=== PATIENT | female | born 1950 | race Caucasian/White ===

== ENCOUNTER 2016-07-04 06:33 | Day surgery (SDC) | payer MEDICARE, OTHER ==
[2016-07-02 12:50] LABS: ABSOLUTE BASOPHILS # (AUTO) 0.1 10^3/uL (0.0-0.2); ABSOLUTE EOSINOPHILS # (AUTO) 0.3 10^3/uL (0.0-0.6); ABSOLUTE LYMPHOCYTES (AUTO) 1.9 10^3/uL (0.5-4.7); ABSOLUTE MONOCYTES (AUTO) 0.4 10^3/uL (0.1-1.4); ABSOLUTE NEUT (AUTO) 3.5 10^3/uL (1.7-8.2); BASOPHILS % (AUTO) 0.9 % (0-2); EOSINOPHILS % (AUTO) 4.2 % (0-6); HEMATOCRIT 42.4 % (36.0-47.0); HEMOGLOBIN 14.1 g/dL (12.0-15.5); HGB HCT DIFFERENCE -0.1; LYMPHOCYTES % (AUTO) 30.9 % (13-45); MEAN CORPUSCULAR HEMOGLOBIN 28.8 pg (27.0-33.4); MEAN CORPUSCULAR HGB CONC 33.3 g/dL (32.0-36.0); MEAN CORPUSCULAR VOLUME 87 fl (80-97); MONOCYTES % (AUTO) 6.4 % (3-13); RED CELL DISTRIBUTION WIDTH 13.2 % (11.5-14.0); SEGMENTED NEUTROPHILS % (AUTO) 57.6 % (42-78); WHITE BLOOD COUNT 6.1 10^3/uL (4.0-10.5)
[2016-07-02 12:58] LABS: APPEARANCE,URINE CLEAR; BILIRUBIN,URINE NEGATIVE (NEGATIVE); GLUCOSE, URINE NEGATIVE (NEGATIVE); KETONES,URINE NEGATIVE (NEGATIVE); LEUKOCYTE ESTERASE,URINE NEGATIVE (NEGATIVE); NITRITE,URINE NEGATIVE (NEGATIVE); PROTEIN,URINE NEGATIVE (NEGATIVE); URINE SPECIFIC GRAVITY 1.009; UROBILINOGEN,URINE NEGATIVE mg/dL (<2.0)
[~2016-07-04 06:33] MED LIST: CEFAZOLIN 1 GM/D5W RTU 1 GM/50 ML RTUPB IV PRN; CEFAZOLIN SODIUM 1 GM in DEXTROSE 5%-WATER 50 ML IV PRN; RINGERS SOLUTION,LACTATED 1,000 ML IV PRN
[2016-07-04] MEDS ORDERED: BUPIVACAINE HCL 0.5 % INJ/PF 30 ML SDV ONE (07:15)
[2016-07-04] MEDS ORDERED: LIDOCAINE 2% INJ (20 MG/ML) 20 ML MDV ONE (07:16)
[2016-07-04] MEDS ORDERED: PROPOFOL INJ 200 MG/20 ML VIAL IV ONE (07:24)
[2016-07-04] MEDS ORDERED: MIDAZOLAM 2 MG/2 ML INJ ONE (07:24)
[2016-07-04] MEDS ORDERED: FENTANYL CITRATE INJ/PF 100 MCG/2 ML AMPUL ONE (07:24)
[2016-07-04] MEDS ORDERED: CEFAZOLIN 1 GM/D5W RTU 1 GM/50 ML RTUPB IV ONE (09:46)
--- NOTE | 2016-07-04 10:33 | [facility] OPERATIVE REPORT E ---
[facility] Operative Report NAME: DENISE SIMTH AGE: 66Y DATE OF SURGERY: 07/04/2016 ROOM: PREOPERATIVE DIAGNOSIS: Hallux limitus, right foot. POSTOPERATIVE DIAGNOSIS: Hallux limitus, right foot. PROCEDURES PERFORMED: 1. Arthroplasty of the first metatarsophalangeal joint. 2. Isaiah implant (Cartiva) style of implant, introducing to first metatarsal head right foot. SURGEON: JUDITH POWERS D.P.M. INTRAOPERATIVE FINDINGS: Indicated total destruction of the metatarsophalangeal joint of the articular facets of the head of the first metatarsal in the base of the proximal phalanx, exuberant formation of osteophytes around the metatarsophalangeal joint. Intraoperative findings were confirmed clinically and radiographically. PROCEDURE: With the patient laying in a dorsal recumbent, right foot and leg were prepped and draped in the usual standard sterile orthopedic manner after the local anesthesia was administered, which was a total ankle block. After the anesthetic effect was accomplished the right leg was elevated for approximately 2 minutes of time and the right ankle pneumatic tourniquet was inflated up to 250 mmHg after the blood was exsanguinated from the right foot. At this point, the right leg was brought to the level of the table. Attention was directed right over the first metatarsophalangeal joint. A curvilinear incision was placed right over the joint. The initial incision was deepened. The superficial and deep subcutaneous tissues were dissected via blunt and sharp dissection. This dissection was carried until the capsular structures of the first metatarsophalangeal joint were brought into the surgical field. All bleeders were ligated. All vital structures were identified and protected from surgical trauma. At this point, the T capsulotomy was performed at the roof of the T capsulotomy was medial and adjacent to extensor hallucis longus tendon. The foot of the capsulotomy was placed right over the joint and ran in medial inferior direction. Capsular and periosteal structures were dissected off bone and the joint was brought into the surgical field. At this point, the arthroplasty was performed to eliminate all abnormal osteophytic formation around the head of the first metatarsal at the base of the proximal phalanx. The head was remodeled to a more normal anatomical configuration. At this point, the functional portion of the articular facet of the head of the first metatarsal was established and a K-wire was driven through it parallel to the long axis of the first metatarsal. Next, the reamer was used to form the bed of the implant. Next, the area was irrigated from all debris created from the drilling through the head of the first metatarsal. At this point, the preparatory work was completed and a 10 mm polyvinyl alcohol Cartiva plug was introduced into the bed of the isaiah implant. Next, the metatarsophalangeal joint was placed through a range of motion and there was about greater than 85 degrees of dorsiflexion. There was very natural full range of motion of the first metatarsophalangeal joint. Due to the satisfactory introduction of the isaiah implant, the right ankle pneumatic tourniquet was deflated. Circulation returned to normal immediately as the normal digital color and temperature became apparent. At this point, the denuded bone around dorsal, medial, and lateral aspect of the distal shaft of the first metatarsal was coated with Kellee AlloWrap 2 x 4 cm. This would prevent adhesion formation postoperatively, which can interfere with the range of motion of the first metatarsophalangeal joint. At this point, the capsular structures were closed with 2-0 Vicryl. The subcutaneous tissues from deep to superficial were closed with 3-0 Vicryl. The skin edges were repositioned and anchored down with 4-0 nylon using continuous interlocked stitch. Betadine compression dressing was applied around the surgical foot followed with an Salvador bandage and a surgical shoe. This patient tolerated the procedure well and left the operating room with stable vital signs and in good condition. The patient was taken to the recovery room alert, conscious, and oriented. There are no permanent disabilities anticipated at this time. DICTATING PHYSICIAN: JUDITH POWERS D.P.M. [id number] PHY#: [id number] ID: [id number] JOB#: [id number] ACCT: [id number] cc:JUDITH POWERS D.P.M. > MTDD
== END 2016-07-04 10:42 | disposition home or self-care (01) ==
LOC: SC 06:33
PROVIDERS: ATTEND Podiatrist Foot & Ankle Surgery
PROC: 0QH Lower Bones, Insertion (ICD-10-PCS; 2016-07-04)
PROC: 0SNM0ZZ Release Right Metatarsal-Phalangeal Joint, Open Approach (ICD-10-PCS; 2016-07-04)
PROC: 0SQM0ZZ Repair Right Metatarsal-Phalangeal Joint, Open Approach (ICD-10-PCS; principal; 2016-07-04 07:30)
DX: M20.21 Hallux rigidus, right foot (principal); I48.91 Unspecified atrial fibrillation; Z01.818 Encounter for other preprocedural examination; Z79.82 Long term (current) use of aspirin; Z88.2 Allergy status to sulfonamides; Z88.1 Allergy status to other antibiotic agents
CPT/HCPCS: 36415; 85025; 81001; 73620; 28899; 28270; J2250; J3490; J0690; J3010; J2704; 01480

== ENCOUNTER → 2017-07-28 | Outpatient (CLI) | payer MEDICARE, OTHER ==
[2017-07-28 09:52] LABS: ABSOLUTE EOSINOPHILS # (AUTO) 0.2 10^3/uL (0.0-0.6); ABSOLUTE LYMPHOCYTES (AUTO) 2.1 10^3/uL (0.5-4.7); ABSOLUTE MONOCYTES (AUTO) 0.5 10^3/uL (0.1-1.4); ABSOLUTE NEUT (AUTO) 5.1 10^3/uL (1.7-8.2); BASOPHILS % (AUTO) 0.4 % (0-2); HEMATOCRIT 43.2 % (36.0-47.0); HEMOGLOBIN 14.6 g/dL (12.0-15.5); LYMPHOCYTES % (AUTO) 26.6 % (13-45); MEAN CORPUSCULAR HEMOGLOBIN 29.5 pg (27.0-33.4); MEAN CORPUSCULAR HGB CONC 33.9 g/dL (32.0-36.0); MEAN CORPUSCULAR VOLUME 87 fl (80-97); MONOCYTES % (AUTO) 5.7 % (3-13); PLATELET COUNT 233 10^3/uL (150-450); RED BLOOD COUNT 4.95 10^6/uL (3.72-5.28); RED CELL DISTRIBUTION WIDTH 13.4 % (11.5-14.0); SEGMENTED NEUTROPHILS % (AUTO) 64.3 % (42-78); TOTAL CELLS COUNTED % (AUTO) 100 %; WHITE BLOOD COUNT 7.9 10^3/uL (4.0-10.5)
[2017-07-28 10:22] LABS: ALANINE AMINOTRANSFERASE 32 U/L (9-52); ALBUMIN 4.4 g/dL (3.5-5.0); ALKALINE PHOSPHATASE 93 U/L (38-126); ANION GAP 11 (5-19); ASPARTATE AMINO TRANSFERASE 23 U/L (14-36); BILIRUBIN,TOTAL 0.7 mg/dL (0.2-1.3); BLOOD UREA NITROGEN 15 mg/dL (7-20); CALCIUM 9.8 mg/dL (8.4-10.2); CARBON DIOXIDE 30 mmol/L (22-30); CHLORIDE 105 mmol/L (98-107); CHOLESTEROL 216.28 mg/dL (0-200); GLUCOSE 91 mg/dL (75-110); POTASSIUM 3.9 mmol/L (3.6-5.0); SODIUM 145.6 mmol/L (137-145); TOTAL PROTEIN 7.3 g/dL (6.3-8.2); TRIGLYCERIDES 111 mg/dL (<150)
[2017-07-28 10:32] LABS: DIRECT LDL 153 mg/dL (<100)
[2017-07-28 10:36] LABS: FREE T4 (FREE THYROXINE) 1.12 ng/dL (0.78-2.19)
[2017-07-28 10:49] LABS: THYROID STIMULATING HORMONE 2.94 uIU/mL (0.47-4.68)
== END ==
LOC: LAB 09:37
PROVIDERS: ATTEND Internal Medicine
DX: E78.00 Pure hypercholesterolemia, unspecified (principal); I48.0 Paroxysmal atrial fibrillation; E03.9 Hypothyroidism, unspecified; E55.9 Vitamin D deficiency, unspecified; I10 Essential (primary) hypertension; Z79.899 Other long term (current) drug therapy
CPT/HCPCS: 36415; 80053; 80061; 82306; 84439; 84443; 85025

== ENCOUNTER 2017-12-22 07:07 | Day surgery (SDC) | payer MEDICARE, OTHER ==
[~2017-12-22 07:07] MED LIST changes: +BUPIVACAINE HCL 0.75% INJ/PF (7.5 MG/1 ML) 10 ML SDV OD PRN; -CEFAZOLIN 1 GM/D5W RTU 1 GM/50 ML RTUPB IV PRN; -CEFAZOLIN SODIUM 1 GM in DEXTROSE 5%-WATER 50 ML IV PRN; +KETOROLAC TROMETHAMINE 0.45% 4 DROP/0.4 ML DROPERETTE OD PRN; +LIDOCAINE 4% INJ/PF (40 MG/ML) 5 ML AMPUL OD PRN; -RINGERS SOLUTION,LACTATED 1,000 ML IV PRN; +TOBRAMYCIN SULFATE/DEXAMETH OPH SUSP 2.5 ML OD PRN; +TOBRAMYCIN SULFATE/DEXAMETH OPH SUSP 2.5 ML ONE
[2017-12-22] MEDS ORDERED: LIDOCAINE 1% INJ-PF (10 MG/ML) 30 ML SDV ONE (07:23)
[2017-12-22] MEDS ORDERED: EPINEPHRINE INJ/PF 1 MG/1 ML AMPULE ONE (07:23)
[2017-12-22] MEDS ORDERED: CHONDR SU A NA/HYALUR INTRAOC KIT (SURGICARE) ONE (07:24)
[2017-12-22] MEDS: TROPICAMIDE 1% OPH SOLN 3 ML OD PRN ×3 (07:49→08:09)
[2017-12-22] MEDS: CYCLOPENTOLATE 0.2%/PHENYLEPHRINE 1% OPH SOLN 2 ML OD PRN ×3 (07:49→08:09)
[2017-12-22] MEDS: TETRACAINE HCL 0.5% OPH SOLN 0.6 ML DROPERETTE OD PRN ×2 (07:50→08:09)
[2017-12-22] MEDS ORDERED: MIDAZOLAM 2 MG/2 ML INJ ONE ×2 (08:07)
[2017-12-22] MEDS: BESIFLOXACIN HCL 0.6% OPH SUSP 5 ML BOTTLE OD PRN ×3 (08:09→08:55)
--- NOTE | 2017-12-22 09:21 | [facility] OPERATIVE REPORT E ---
[facility] Operative Report NAME: DENISE SMITH AGE: 67Y DATE OF SURGERY: 12/22/2017 ROOM: [facility] Operative Report PREOPERATIVE DIAGNOSIS: CATARACT, RIGHT EYE. POSTOPERATIVE DIAGNOSIS: CATARACT, RIGHT EYE. PROCEDURE PERFORMED: PHACOEMULSIFICATION WITH POSTERIOR CHAMBER INTRAOCULAR LENS, RIGHT EYE. SURGEON: VINCE CSAH MD ANESTHESIA: TOPICAL WITH MAC. INDICATIONS FOR SURGERY: Difficulty driving at night. Best corrected visual acuity 20/60 PROCEDURE: The patient was brought to the Operating Room and placed on the operative table. Following tetracaine drops, topical anesthesia was administered. This consisted of instrument wipe pledgets soaked in a solution of 4% Xylocaine mixed with 0.75% Marcaine in a 1:2 ratio. A 2 x 1 cm pledget was placed in the superior fornix. A 1 x 1 cm pledget was placed in the inferior fornix. The eye was patched shut for 5 minutes. The patch was removed. The eye was sterilely prepped and draped in the usual manner. Lid speculum was placed in the eye. The pledgets were removed. 4-0 black silk sutures were placed around the superior and the inferior rectus muscles to be used as traction. A conjunctival peritomy was made at the 10 o'clock position. Hemostasis was obtained with bipolar cautery. A posterior limbal groove was created using a crescent knife and dissected anteriorly towards the cornea. A sharp point blade was used to create a paracentesis site at the 2 o'clock position. A 2.4 mm keratome was used to enter the anterior chamber through the groove. Viscoelastic was injected into the anterior chamber. An anterior capsulotomy was performed using Utrata forceps in a capsulorrhexis fashion. Hydrodissection and hydrodelineation were performed. Phacoemulsification was performed in dbqhvo-ghn-jzdhbxk technique. A total of 39 seconds phaco time was used. Following this, the I/A unit was used to remove residual cortex. Viscoelastic was injected into the capsular bag. Intraocular lens model SN60WF, 18.0 diopters, serial number [id number] was placed in the capsular bag. The I/A unit was used to remove residual viscoelastic. The wound was seen to be watertight under high and low pressure, and no sutures were placed. The intraocular lens was well centered. The pressure was adjusted in the eye to normal pressure. The 4-0 black silk sutures and lid speculum were removed. The eye was shielded after Besivance drops were placed. The patient tolerated the procedure well and was sent to the Recovery Room in good condition. DICTATING PHYSICIAN: VINCE CASH M.D. DICTATING PHYSICIAN: VINCE CASH M.D. [id number] PHY#: [id number] ID: [id number] JOB#: [id number] ACCT: [id number] cc:VINCE CASH M.D. >
--- NOTE | 2017-12-22 09:25 | [facility] DISCHARGE SUMMARY E ---
[facility] Discharge Summary NAME: DENISE SMITH AGE: 67Y ADMITTED: 12/22/2017 DISCHARGED: FINAL DIAGNOSIS: Cataract, right eye. HOSPITAL COURSE: The patient is a 57-year-old lady who underwent uneventful cataract extraction with intraocular lens implant, right eye on 12/22/2017. She will be discharged to home. She is instructed to resume preoperative medications, take Tylenol as needed for discomfort, to keep her eye shielded, to use Besivance, Durezol and Ilevro at 3 p.m. and 8 p.m., and to followup in my office in 1 day. DICTATING PHYSICIAN: VINCE CASH M.D. [id number] Y#: [id number] ID: [id number] JOB#: [id number] ACCT: [id number] cc:VINCE CASH M.D. >
== END 2017-12-22 09:36 | disposition home or self-care (01) ==
LOC: SC 07:07
PROVIDERS: ATTEND Ophthalmology
PROC: 08RJ3JZ Replacement of Right Lens with Synthetic Substitute, Percutaneous Approach (ICD-10-PCS; principal; 2017-12-22 08:30)
DX: H25.811 Combined forms of age-related cataract, right eye (principal); H25.812 Combined forms of age-related cataract, left eye; H16.223 Keratoconjunctivitis sicca, not specified as Sjogren's, bilateral; H17.89 Other corneal scars and opacities
CPT/HCPCS: 66984; V2632; J2250; J3490 ×5; A9270; J0171; 142

== ENCOUNTER 2018-01-12 07:59 | Day surgery (SDC) | payer MEDICARE, OTHER ==
[2018-01-12] MEDS: BESIFLOXACIN HCL 0.6% OPH SUSP 5 ML BOTTLE OS PRN ×4 (07:51→08:44)
[~2018-01-12 07:59] MED LIST changes: -BUPIVACAINE HCL 0.75% INJ/PF (7.5 MG/1 ML) 10 ML SDV OD PRN; +BUPIVACAINE HCL 0.75% INJ/PF (7.5 MG/1 ML) 10 ML SDV OS PRN; +CHONDR SU A NA/HYALUR INTRAOC KIT (SURGICARE) ONE; +EPINEPHRINE INJ/PF 1 MG/1 ML AMPULE ONE; -KETOROLAC TROMETHAMINE 0.45% 4 DROP/0.4 ML DROPERETTE OD PRN; +KETOROLAC TROMETHAMINE 0.45% 4 DROP/0.4 ML DROPERETTE OS PRN; +LIDOCAINE 1% INJ-PF (10 MG/ML) 30 ML SDV ONE; -LIDOCAINE 4% INJ/PF (40 MG/ML) 5 ML AMPUL OD PRN; +LIDOCAINE 4% INJ/PF (40 MG/ML) 5 ML AMPUL OS PRN; -TOBRAMYCIN SULFATE/DEXAMETH OPH SUSP 2.5 ML OD PRN; -TOBRAMYCIN SULFATE/DEXAMETH OPH SUSP 2.5 ML ONE
[2018-01-12] MEDS: CYCLOPENTOLATE 0.2%/PHENYLEPHRINE 1% OPH SOLN 2 ML OS PRN ×3 (08:34→08:55)
[2018-01-12] MEDS: TROPICAMIDE 1% OPH SOLN 3 ML OS PRN ×3 (08:34→08:55)
[2018-01-12] MEDS: TETRACAINE HCL 0.5% OPH SOLN 0.6 ML DROPERETTE OS PRN ×2 (08:35→09:09)
[2018-01-12] MEDS ORDERED: MIDAZOLAM 2 MG/2 ML INJ ONE (08:59)
[2018-01-12] MEDS ORDERED: FENTANYL CITRATE INJ/PF 100 MCG/2 ML AMPUL ONE (08:59)
--- NOTE | 2018-01-12 10:07 | [facility] OPERATIVE REPORT E ---
[facility] Operative Report NAME: DENISE SMITH AGE: 67Y DATE OF SURGERY: 01/12/2018 ROOM: [facility] Operative Report PREOPERATIVE DIAGNOSIS: CATARACT, LEFT EYE. POSTOPERATIVE DIAGNOSIS: CATARACT, LEFT EYE. PROCEDURE PERFORMED: PHACOEMULSIFICATION WITH POSTERIOR CHAMBER INTRAOCULAR LENS, LEFT EYE. SURGEON: VINCE CASH MD ANESTHESIA: TOPICAL WITH MAC. INDICATIONS FOR SURGERY: Difficulty driving with glare at night. Best corrected visual acuity 20/70. PROCEDURE: The patient was brought to the Operating Room and placed on the operative table. Following tetracaine drops, topical anesthesia was administered. This consisted of instrument wipe pledgets soaked in a solution of 4% Xylocaine mixed with 0.75% Marcaine in a 1:2 ratio. A 2 x 1 cm pledget was placed in the superior fornix. A 1 x 1 cm pledget was placed in the inferior fornix. The eye was patched shut for 5 minutes. The patch was removed. The eye was sterilely prepped and draped in the usual manner. Lid speculum was placed in the eye. The pledgets were removed. 4-0 black silk sutures were placed around the superior and the inferior rectus muscles to be used as traction. A conjunctival peritomy was made at the 10 o'clock position. Hemostasis was obtained with bipolar cautery. A posterior limbal groove was created using a crescent knife and dissected anteriorly towards the cornea. A sharp point blade was used to create a paracentesis site at the 2 o'clock position. A 2.4 mm keratome was used to enter the anterior chamber through the groove. Viscoelastic was injected into the anterior chamber. An anterior capsulotomy was performed using Utrata forceps in a capsulorrhexis fashion. Hydrodissection and hydrodelineation were performed. Phacoemulsification was performed in qastdl-vea-voueqre technique. A total of 6.05 CBE phaco time was used. Following this, the I/A unit was used to remove residual cortex. Viscoelastic was injected into the capsular bag. Intraocular lens model SN60WF, 20.5 diopters, serial number [id number] was placed in the capsular bag. The I/A unit was used to remove residual viscoelastic. The wound was seen to be watertight under high and low pressure, and no sutures were placed. The intraocular lens was well centered. The pressure was adjusted in the eye to normal pressure. The 4-0 black silk sutures and lid speculum were removed. The eye was shielded after Besivance drops were placed. The patient tolerated the procedure well and was sent to the Recovery Room in good condition. A single horizontal 10-0 Nylon suture was placed through the incision. The *------* was reapproximated over the incision. DICTATING PHYSICIAN: VINCE CASH M.D. DICTATING PHYSICIAN: VINCE CASH M.D. [id number] PHY#: [id number] ID: [id number] JOB#: [id number] ACCT: [id number] cc:VINCE CASH M.D. >
--- NOTE | 2018-01-12 10:10 | [facility] DISCHARGE SUMMARY E ---
[facility] Discharge Summary NAME: DENISE SMITH AGE: 67Y ADMITTED: 01/12/2018 DISCHARGED: 01/12/2018 FINAL DIAGNOSIS: Cataract, left eye. HOSPITAL COURSE: The patient is a 67-year-old lady who underwent uneventful cataract extraction with intraocular lens implant, left eye on 01/12/18. She will be discharged to home. She is instructed to resume preoperative medications, take Tylenol as needed for discomfort, to keep her eye shielded, to use Besivance, Durezol and Ilevro at 3 p.m. and 8 p.m., and to followup in my office in 1 day. DICTATING PHYSICIAN: VINCE CASH M.D. [id number] PHY#: [id number] ID: [id number] JOB#: [id number] ACCT: [id number] cc:VINCE CASH M.D. >
== END 2018-01-12 10:37 | disposition home or self-care (01) ==
LOC: SC 07:59
PROVIDERS: ATTEND Ophthalmology
DX: H25.812 Combined forms of age-related cataract, left eye (principal); Z96.1 Presence of intraocular lens; I10 Essential (primary) hypertension; I49.9 Cardiac arrhythmia, unspecified; Z79.01 Long term (current) use of anticoagulants; Z79.899 Other long term (current) drug therapy; Z88.2 Allergy status to sulfonamides; Z88.5 Allergy status to narcotic agent; Z88.1 Allergy status to other antibiotic agents
CPT/HCPCS: 66984; V2632; J2250; J3490 ×4; A9270; J0171; J3010; 142

== ENCOUNTER → 2020-04-10 | Outpatient (CLI) | payer MEDICARE, OTHER ==
[2020-04-10 10:05] LABS: ABSOLUTE EOSINOPHILS # (AUTO) 0.2 10^3/uL (0.0-0.6); ABSOLUTE LYMPHOCYTES (AUTO) 2.2 10^3/uL (0.5-4.7); ABSOLUTE MONOCYTES (AUTO) 0.5 10^3/uL (0.1-1.4); ABSOLUTE NEUT (AUTO) 3.7 10^3/uL (1.7-8.2); BASOPHILS % (AUTO) 0.5 % (0-2); EOSINOPHILS % (AUTO) 3.4 % (0-6); HEMATOCRIT 41.6 % (36.0-47.0); HEMOGLOBIN 14.3 g/dL (12.0-15.5); LYMPHOCYTES % (AUTO) 33.1 % (13-45); MEAN CORPUSCULAR HEMOGLOBIN 29.6 pg (27.0-33.4); MEAN CORPUSCULAR HGB CONC 34.3 g/dL (32.0-36.0); MEAN CORPUSCULAR VOLUME 86 fl (80-97); MONOCYTES % (AUTO) 6.9 % (3-13); PLATELET COUNT 225 10^3/uL (150-450); RED BLOOD COUNT 4.84 10^6/uL (3.72-5.28); RED CELL DISTRIBUTION WIDTH 13.6 % (11.5-14.0); SEGMENTED NEUTROPHILS % (AUTO) 56.1 % (42-78); TOTAL CELLS COUNTED % (AUTO) 100 %; WHITE BLOOD COUNT 6.6 10^3/uL (4.0-10.5)
[2020-04-10 10:28] LABS: ALBUMIN 4.1 g/dL (3.5-5.0); ALKALINE PHOSPHATASE 104 U/L (38-126); ANION GAP 10 (5-19); ASPARTATE AMINO TRANSFERASE 21 U/L (14-36); BILIRUBIN,DIRECT 0.2 mg/dL (0.0-0.4); BILIRUBIN,TOTAL 0.7 mg/dL (0.2-1.3); BLOOD UREA NITROGEN 22 mg/dL (7-20); CALCIUM 9.8 mg/dL (8.4-10.2); CARBON DIOXIDE 26 mmol/L (22-30); CHLORIDE 105 mmol/L (98-107); CHOLESTEROL 213.75 mg/dL (0-200); GLUCOSE 88 mg/dL (75-110); POTASSIUM 4.1 mmol/L (3.6-5.0); TOTAL PROTEIN 7.6 g/dL (6.3-8.2); TRIGLYCERIDES 129 mg/dL (<150)
[2020-04-10 10:39] LABS: DIRECT LDL 146 mg/dL (<100)
[2020-04-10 10:43] LABS: FREE T4 (FREE THYROXINE) 1.22 ng/dL (0.78-2.19)
[2020-04-10 10:57] LABS: THYROID STIMULATING HORMONE 2.94 uIU/mL (0.47-4.68)
== END ==
LOC: OD 09:17
PROVIDERS: ATTEND Internal Medicine
DX: I48.91 Unspecified atrial fibrillation (principal); D51.9 Vitamin B12 deficiency anemia, unspecified; E03.9 Hypothyroidism, unspecified; I10 Essential (primary) hypertension; Z79.899 Other long term (current) drug therapy; I47.1 Supraventricular tachycardia
CPT/HCPCS: 36415; 80053; 80061; 82306; 84439; 84443; 85025